=== PATIENT | female | born 1950 | race Caucasian/White ===

== ENCOUNTER → 2017-07-15 | Outpatient (CLI) | payer MEDICARE | END | disposition home or self-care (01) | LOC: KCIC CT 11:37 | DX: J32.9 Chronic sinusitis, unspecified (principal); I10 Essential (primary) hypertension; J44.9 Chronic obstructive pulmonary disease, unspecified; Z79.01 Long term (current) use of anticoagulants; Z87.891 Personal history of nicotine dependence | CPT/HCPCS: 70486 ==

== ENCOUNTER → 2017-07-19 | Outpatient (CLI) | payer MEDICARE | END | disposition home or self-care (01) | LOC: KCIC MAMMO 12:12 | DX: Z12.31 Encounter for screening mammogram for malignant neoplasm of breast (principal) | CPT/HCPCS: 77063; 77067 ==

== ENCOUNTER → 2017-09-16 | Outpatient (CLI) | payer MEDICARE | END | disposition home or self-care (01) | LOC: KCIC US 14:14 | DX: I77.1 Stricture of artery (principal); I73.9 Peripheral vascular disease, unspecified | CPT/HCPCS: 93922 ==

== ENCOUNTER → 2017-11-15 | Outpatient (CLI) | payer MEDICARE | END | disposition home or self-care (01) | LOC: KCIC US 12:53 | DX: M48.062 Spinal stenosis, lumbar region with neurogenic claudication (principal); I65.23 Occlusion and stenosis of bilateral carotid arteries; M47.896 Other spondylosis, lumbar region; M51.26 Other intervertebral disc displacement, lumbar region; M12.88 Other specific arthropathies, not elsewhere classified, other specified site; R09.89 Other specified symptoms and signs involving the circulatory and respiratory systems; I10 Essential (primary) hypertension; E78.5 Hyperlipidemia, unspecified; J44.9 Chronic obstructive pulmonary disease, unspecified | CPT/HCPCS: 72148; 93880 ==

== ENCOUNTER → 2017-11-22 | Outpatient (CLI) | payer MEDICARE ==
[2013-12-17 12:30] VITALS: BP 166/78
[~2017-11-22] MED LIST: ATOR40TA59 PO; CLOP75TA PO; LOSA1TAB25 PO; METO-247 PO; PANT40TA5 PO
--- NOTE | 2017-11-22 13:13 | KCIC ---
MRI of the cervical spine without contrast 11/22/2017 CLINICAL HISTORY: Neck pain for one year. TECHNIQUE: Unenhanced T1-weighted, T2-weighted and inversion recovery sagittal and gradient echo and T2-weighted axial images of the cervical spine were obtained. FINDINGS: Mild lateral curvature of the cervical spine is seen convex to the right. There is slight reversal of the normal cervical lordosis. Degenerative signal changes are seen involving all of the disks of the cervical spine. Degenerative signal changes are seen within the marrow surrounding these discs. Loss of height of the C4-5, C5-6 and C6-7 discs is noted. No area of abnormal signal intensity is seen involving the cervical spinal cord. At the C2-3, C3-4 and C4-5 disc spaces there are minimal to mild generalized disc bulges. Degenerative changes are seen involving the uncovertebral and facet joints bilaterally. These findings do not result in significant central spinal canal or neural foraminal stenosis. At the C5-6 disc space there is a mild to moderate generalized disc bulge. Degenerative changes are seen involving the uncovertebral and facet joints, left greater than right. These findings when combined efface the anterior and posterior CSF resulting in mild central spinal canal stenosis without evidence of cord impingement. Mild to moderate left greater than right neural foraminal stenosis is seen. At the C6-7 disc space there is a mild generalized disc bulge. Superimposed on this disc bulge is a focal central disc herniation. This measures 2.5 mm in AP diameter. Degenerative changes are seen involving the uncovertebral and facet joints, right greater than left. These findings do not result in significant central spinal canal stenosis. Mild right neural foraminal stenosis is seen. The left neural foramen is patent. At the C7-T1 disc space there is a minimal generalized disc bulge. Degenerative changes are seen involving the facet joints bilaterally. These findings do not result in significant central spinal canal or neural foraminal stenosis. IMPRESSION: Degenerative changes are seen throughout the cervical spine. These findings result in mild central spinal canal stenosis at C5-6 without evidence of cord impingement. Mild to moderate left greater than right neural foraminal stenosis is seen at C5-6. Mild right neural foraminal stenosis is seen at C6-7. Electronically signed by: Chance Clark MD (11/22/2017 1:10 PM) [id number]
--- NOTE | 2017-11-22 13:18 | KCIC ---
MRI of the thoracic spine without contrast 11/22/2017 CLINICAL HISTORY: Neurogenic claudication. Mid back pain for one year. Painful walking for the last 6 months. TECHNIQUE: Unenhanced T1-weighted, T2-weighted and inversion recovery sagittal and T1-weighted and T2-weighted axial images of the thoracic spine were obtained. T2-weighted sagittal images of the cervical, thoracic and lumbar spine were obtained for localization purposes. FINDINGS: Minimal S-shaped curvature of the thoracolumbar spine is seen. Degenerative signal changes are seen involving all of the disks of the thoracic spine. The marrow signal of the visualized bony structures is within normal limits. The thoracic spinal cord is normal in morphology, position, and signal characteristics. On the axial images throughout the thoracic spine mild degenerative changes are seen. These consist of minimal generalized disc bulges and mild degenerative changes involving the facet joints. These findings do not result in significant central spinal canal or neural foraminal stenosis at any level. IMPRESSION: Mild degenerative changes are seen involving the thoracic spine as outlined above. These findings do not result in significant central spinal canal or neural foraminal stenosis at any level. Electronically signed by: Chance Clark MD (11/22/2017 1:14 PM) [id number]
== END | disposition home or self-care (01) ==
LOC: KCIC MRI 09:14
PROVIDERS: ATTEND Family Medicine
DX: M48.02 Spinal stenosis, cervical region (principal); M50.223 Other cervical disc displacement at C6-C7 level; M47.893 Other spondylosis, cervicothoracic region; I10 Essential (primary) hypertension; E78.5 Hyperlipidemia, unspecified; I25.10 Atherosclerotic heart disease of native coronary artery without angina pectoris; J44.9 Chronic obstructive pulmonary disease, unspecified; Z87.891 Personal history of nicotine dependence
CPT/HCPCS: 72141; 72146

== ENCOUNTER → 2018-01-09 | Outpatient (CLI) | payer MEDICARE ==
[2013-12-17 12:30] VITALS: BP 166/78
[~2018-01-09] MED LIST changes: +SPIR50TA4 PO
--- NOTE | 2018-01-09 20:42 | PAIN ---
DATE OF SERVICE: 01/09/2018 INITIAL CONSULTATION FOR PAIN CLINIC CHIEF COMPLAINT: Low back and right lower extremity pain. HISTORY OF PRESENT ILLNESS: This is a 67-year-old female who presents with history of pain in the low back and right hip and lower extremity, also in the right groin, and also some in the mid upper back as well as the base of the neck and shoulders, but worse for about the past 2 years. The patient reports it has gradually increased with time. No specific injury or accident that she is aware of, but has been getting worse over time. The patient reports it is constant, sharp, throbbing, numbness, radiating to the right leg, posterior gluteus, posterior thigh, intermittent in intensity, but always present and burning quality as well, worse with standing, walking, changing positions, especially from sitting to standing. The patient reports it awakens her from sleep about twice a night, especially if she sleeps on her right side. The patient reports that it is affecting her ability to walk as well as her bowel and bladder where it is causing increased frequency, but no loss of continence. The patient reports she is using motorized scooters when she is at a store because it is difficult to walk for more than about 10 minutes. The patient had an MRI scan of the lumbar spine that showed mild degenerative changes with circumferential disk bulge at L5-S1 with right foraminal annular fissure and moderate bilateral neuroforaminal stenosis, also with L2-L3 showing left foraminal disk protrusion. L3-L4, L4-L5 shows circumferential disk bulges with moderate facet arthropathy. The patient has not done any formal physical therapy currently and she is doing some stretching and strengthening on her own, but no formal therapies at this time. The patient is taking ibuprofen, which does decrease the pain. She tried hydrocodone from her primary doctor, which she reports she did not feel right while she was taking it and has not taken any since. The patient rates her disability from 0-10, 10 being the worst, as an 8 with family and home responsibilities, occupation, sexual behavior and self-care; 9-10 with recreation and social activity, and 6 with life support activities. PAST MEDICAL HISTORY: Significant for hypertension, dizziness, headaches, coronary artery disease with stents placed, status post myocardial infarction, arthritis, osteoporosis, dizziness. PAST SURGICAL HISTORY: Includes angioplasty and stent placement in coronary arteries. FAMILY HISTORY: Significant for heart disease. SOCIAL HISTORY: The patient does not smoke. She quit recently 8 months ago, before that smoked about a pack a day for 30 years. She drinks 2-3 alcoholic drinks every other week. The patient reports no illegal, illicit or recreational drugs. She is , lives with her spouse, lives locally in [place], [place]. REVIEW OF SYSTEMS: The patient's review of systems is positive for those items mentioned in the history of present illness. All systems reviewed and otherwise negative. It is complete, full and well documented on the patient's chart. PHYSICAL EXAMINATION: VITAL SIGNS: Blood pressure 142/72, pulse is 82, respirations 18, temperature 98.1 degrees Fahrenheit, height 5 feet 3 inches, weighs 180 pounds. GENERAL: The patient is awake, alert and oriented, appropriate, very pleasant demeanor. HEENT: Head normocephalic, atraumatic. Extraocular movements are intact and symmetrical. Oral cavity, mucous membranes are moist and pink. Dentition intact. NECK: Shows anterior throat is supple without palpable lymphadenopathy noted. Swallow reflex is symmetrical. CHEST: Shows normal on inspection. Breath sounds are clear to auscultation bilaterally. HEART: S1, S2 clear. No murmurs auscultated. ABDOMEN: Soft, nontender, nondistended. No palpable organomegaly noted. No rebound or guarding demonstrated. BACK: Shows spine grossly in the midline, normal appearing thoracic kyphosis and lumbar lordotic curvature. Lumbar paraspinous muscle shows symmetrical on inspection, on palpation shows some moderate tenderness, but only diffusely without radiation bilaterally. The patient has good rotational motion of the lumbar spine, both greater than 10 degrees right and left, as well as extension greater than 10 degrees, forward flexion 45 degrees without significant pain reported. EXTREMITIES: Lower extremities show deep tendon reflexes at 2+ in the patella, 1+ at tendo calcaneus tendon. Motor exam is strong at 5/5 dorsiflexion, extension, quads and hamstring flexion and equal. Peripheral pulses are 1+ posterior tibia. No peripheral edema is noted. Straight leg raise noted to be negative for reproduction of radicular symptoms. Gaenslen's and Richie maneuver are negative bilaterally. The patient is able to stand, stand on her toes without difficulty or loss of balance, walks with a normal appearing gait without any assistive devices to ambulate. SKIN: Shows warm, dry, good turgor. No edema. No sores, rashes or bruising. IMPRESSION: 1. This is a 67-year-old female with approximate 2-year history of increasing pain in low back, right lower extremity. 2. MRI scan of the lumbar spine as noted. 3. Arthritis. 4. Hypertension. 5. Anticoagulation with Plavix. PLAN: Options were discussed with the patient including conservative medical management, physical therapies, interventional techniques and she would like to pursue interventional techniques. We discussed a lumbar epidural steroid injection using descriptions as well as anatomical models to describe the procedure. We will check with a veneer measurer to get clearance if it is safe and deemed appropriate to hold the Plavix for 7 days prior to potential injection. The patient will continue to take her Plavix until we hear from the veneer measurer and will hold at that time if cleared and deemed safe and appropriate. The patient will try Medrol Dosepak, we gave prescription with instructions and side effects to be aware of in the meantime to see if this may decrease the pain. If cleared to be off Plavix, we will have her return for a lumbar epidural steroid injection at that time. CHAITANYA SALINAS MD DR: KADE/marshall JOB#: [id number] / [id number]
== END | disposition home or self-care (01) ==
LOC: PNCL 09:23
PROVIDERS: ATTEND Anesthesiology
DX: M79.604 Pain in right leg (principal); M54.5 Low back pain; M19.90 Unspecified osteoarthritis, unspecified site; I10 Essential (primary) hypertension; I25.2 Old myocardial infarction; I25.10 Atherosclerotic heart disease of native coronary artery without angina pectoris; E78.5 Hyperlipidemia, unspecified; J44.9 Chronic obstructive pulmonary disease, unspecified; Z79.01 Long term (current) use of anticoagulants; Z87.891 Personal history of nicotine dependence
CPT/HCPCS: G0463

== ENCOUNTER → 2018-01-24 | Outpatient (CLI) | payer MEDICARE ==
[2013-12-17 12:30] VITALS: BP 166/78
[~2018-01-24] MED LIST changes: +IOHEXOL 180 MG/ML 10 ML VIAL. ONE; +LIDOCAINE 1% PF 2 ML VIAL. ONE; +methylPREDNISolone ACETATE 40 MG/ML VIAL. ONE; +methylPREDNISolone ACETATE 80 MG/ML VIAL. ONE
--- NOTE | 2018-01-24 13:02 | PAIN ---
DATE OF SERVICE: 01/24/2018 DIAGNOSES: Lumbar radiculopathy with lumbar degenerative disk disease and lumbar spinal stenosis. HISTORY OF PRESENT ILLNESS: The patient is a 67-year-old female who returns for followup status post initial evaluation and clearance to hold her Plavix. She has been off it for 8 days now, still significant pain in the low back and right lower extremity as previously. The patient reports no new motor or sensory deficits, no new changes, still significant pain with walking, standing, changing positions, better with sitting or lying down. The patient reports pain is 8 on a scale of 10 at all times, average, worst and its least and is an 8 today. The patient reports it is aching and radiating in the low back into the right posterior gluteus, posterior thigh and hip on the right side and into the lower leg occasionally. The patient reports some tingling and numbness as well as aching, burning, radiating pain. The patient reports it does not awaken her from sleep at night, though she feels better with sitting down or lying down, sleeps about 8 hours without interruption generally. The patient reports no new motor or sensory deficits, no new bowel or bladder incontinence or other complaints. She has been off her Plavix once again for about 8 days. PHYSICAL EXAMINATION: VITAL SIGNS: The patient's blood pressure 143/83, pulse 90, respirations are 16, temperature 98.1 degrees Fahrenheit. Height is 5 feet 3 inches, weight 178 pounds. GENERAL: The patient is awake, alert, oriented, appropriate, very pleasant demeanor. HEENT: Head shows normocephalic, atraumatic. Extraocular movements intact and symmetrical. Oral cavity, mucous membranes are moist and pink. Dentition is intact. NECK: Shows anterior throat supple without palpable lymphadenopathy noted. Swallow reflex symmetrical. CHEST: Shows normal on inspection. Breath sounds are clear to auscultation bilaterally. HEART: Shows S1, S2 clear. No murmurs auscultated. ABDOMEN: Soft, nontender, nondistended. No palpable organomegaly is noted. No rebound or guarding demonstrated. BACK: Shows spine grossly in the midline. Normal appearing thoracic kyphosis and minor flattening of lumbar lordotic curvature. Lumbar paraspinous muscle shows symmetrical on inspection, on palpation shows some moderate tenderness only diffusely in the lumbar distribution bilaterally, but without radiation, without atrophy or hypertrophy. The patient shows good rotational motion of lumbar spine, both laterally as well as extension and flexion without difficulty. No tenderness over the sacrum or sacroiliac regions. EXTREMITIES: Lower extremities show deep tendon reflexes at 2+ in the patellar, 1+ tendo calcaneus tendons. Motor exam is strong with 5/5 dorsiflexion, extension, quadriceps and hamstring flexion. Peripheral pulses are 1+ posterior tibial. No peripheral edema is noted bilaterally. Options were discussed with the patient. The patient's old chart was reviewed as her current medication regimen updated. Current review of systems updated today as well. We will proceed with a lumbar epidural steroid injection today with fluoroscopic guidance. Risks were again discussed including, but not limited to bleeding, infection, possibility of epidural hematoma, subsequent neurological compromise, dural puncture, headaches, spinal cord and/or nerve damage, side effects of steroid medication and poor results regarding pain control. The patient understands and wished to proceed. The patient to return to clinic in approximately 2 weeks for followup. She was counseled on return appointment, activity level and side effects to be aware of. DIAGNOSES: Lumbar radiculopathy with lumbar degenerative disk disease, lumbar spinal stenosis. PROCEDURE: Lumbar epidural steroid injection, translaminar approach at the L5-S1 level using C-arm fluoroscopic guidance under sterile prep and drape using local anesthetic. MEDICATION INJECTED: A total of 120 mg Depo-Medrol, plus 10 mL of preservative-free normal saline and 2 mL of Isovue for contrast. CONDITION AT DISCHARGE: Stable. The patient tolerated procedure well, had no complications. CHAITANYA SALINAS MD DR: KADE/marshall JOB#: [id number] / [id number]
== END | disposition home or self-care (01) ==
LOC: PNCL 07:56
PROVIDERS: ATTEND Anesthesiology
DX: M51.16 Intervertebral disc disorders with radiculopathy, lumbar region (principal); M48.061 Spinal stenosis, lumbar region without neurogenic claudication; Z88.0 Allergy status to penicillin
CPT/HCPCS: 62323; J1030; J1040; Q9965

== ENCOUNTER → 2018-06-27 | Outpatient (CLI) | payer MEDICARE ==
[2013-12-17 12:30] VITALS: BP 166/78
[~2018-06-27] MED LIST changes: -IOHEXOL 180 MG/ML 10 ML VIAL. ONE; -LIDOCAINE 1% PF 2 ML VIAL. ONE; -methylPREDNISolone ACETATE 40 MG/ML VIAL. ONE; -methylPREDNISolone ACETATE 80 MG/ML VIAL. ONE
--- NOTE | 2018-06-27 12:25 | KCIC ---
Bilateral diagnostic digital mammograms with 3-D tomosynthesis: Reason for examination: Right breast lump for 2 months. Comparison is made to previous studies dated 07/11/2017 and 07/02/2013. Bilateral mammograms in CC and oblique projections were obtained with 2-D imaging and 3-D tomosynthesis imaging on a Siemens Inspiration unit and reviewed on the workstation. Interpretation was made with the benefit of CAD. The skin and nipples show no abnormalities. No abnormal axillary lymph nodes are seen. The breast parenchyma shows scattered fatty and fibroglandular density. (Breast density: Category B.) There appears to be a large area of nodular architectural distortion anteriorly in the upper outer quadrant of the right breast. There is also an enlarging circumscribed nodule at the 10:00 position of the right breast posteriorly consistent with an intramammary lymph node. In the left breast there is a small 6 mm nodular density at approximately the 3:00 B position. No other focal suspicious abnormalities are seen. There are no suspicious calcifications. Benign calcifications are present. Impression: Spiculated mass in the upper outer quadrant anteriorly in the right breast with enlarging nodule consistent with intramammary lymph node at the 10:00 position posteriorly. 6 mm nodule at approximately the 3:00 B position of the left breast. Ultrasound to follow. BI-RADS Category 0: Incomplete. Needs additional imaging evaluation. Bilateral breast ultrasound: Bilateral breast ultrasound was performed in the areas of mammographic concern and at the axilla. In the right breast, there is a spiculated mass with posterior acoustic shadowing anteriorly in the upper outer quadrant of the right breast centered at the 10:00 position 4 cm from the nipple. This mass appears to measure at least 3.2 cm in greatest dimension and corresponds to the nodular architectural distortion seen mammographically. This is highly suspicious of malignancy. In the 10:00 position 10 cm from the nipple, there is a 1 cm nodule consistent with an intramammary lymph node with eccentric cortical thickening suspicious of lymph node metastasis. No abnormal appearing lymph nodes are seen in the axilla. In the left breast at the 3:00 position 7 cm from the nipple, there is a small 5.6 mm hypoechoic fibrocystic type lesion present which would correspond with the area of mammographic concern. No other focal lesions are seen. No abnormal appearing lymph nodes are seen in the left axilla. IMPRESSION: Spiculated mass centered at the 10:00 position 4 cm from the nipple in the right breast and measuring at least 3.2 cm in greatest dimension which is highly suspicious of malignancy. 1 cm nodule consistent with intramammary lymph node which has enlarged since previous mammographic exam and shows cortical thickening and is consistent with a intramammary lymph node with metastasis. Recommend further evaluation with biopsies. Benign-appearing fibrocystic type lesion in the 3:00 position of the left breast. Recommend 6 month sonographic follow-up. BI-RADS Category 5: Highly suggestive of malignancy. These findings have been discussed with the patient and the patient's physician was notified about these findings at 12:20 PM on 06/27/2018. "Our facility is accredited by the [employer] Mammography Program." This patient's information has been entered into a reminder system for the patient to be notified with the results of her examination and a target date for the next mammogram. Electronically signed by: Olga White MD (06/27/2018 12:23 PM) [id number]
== END | disposition home or self-care (01) ==
LOC: KCIC MAMMO 09:50
PROVIDERS: ATTEND Family Medicine
DX: N63.11 Unspecified lump in the right breast, upper outer quadrant (principal)
CPT/HCPCS: 76641; 77066; G0279; 77062

== ENCOUNTER → 2021-06-22 | Outpatient (CLI) | payer MEDICARE ==
[2013-12-17 12:30] VITALS: BP 166/78
[~2021-06-22] MED LIST changes: -PANT40TA5 PO; +PANT40TA77 PO
--- NOTE | 2021-06-22 15:40 | KCIC ---
EXAM: Chest, 2 views. HISTORY: Cough. COMPARISON: None. FINDINGS: 2 views of the chest are obtained. There is linear atelectasis or trace fluid along the rig ht pleural fissures. There is also linear atelectasis within the lateral left lower lobe. There are c oronary artery stents. There is no consolidation. There is no pneumothorax. The heart is normal in si ze. There is surgical clips along the right axilla and lateral breast. IMPRESSION: Linear scarring or trace fluid along the right pleural fissures. No acute pulmonary findi ng. Electronically signed by: Nicole Junior MD (06/22/2021 3:37 PM) [id number]
== END ==
LOC: KCIC 15:18
PROVIDERS: ATTEND Internal Medicine
DX: J98.11 Atelectasis (principal); R53.83 Other fatigue; U09.9 Post COVID-19 condition, unspecified; R05.9 Cough, unspecified; Z95.5 Presence of coronary angioplasty implant and graft; Z98.890 Other specified postprocedural states
CPT/HCPCS: 71046